=== PATIENT | male | born 1960 | race Caucasian/White ===

== ENCOUNTER → 2021-01-27 | Outpatient (CLI) | payer OTHER | LOC: EXRD 15:03 | DX: B19.20 Unspecified viral hepatitis C without hepatic coma (principal); M79.642 Pain in left hand; M79.641 Pain in right hand | CPT/HCPCS: 73130 ==

== ENCOUNTER → 2021-08-26 | Outpatient (CLI) | payer OTHER ==
[~2021-08-26] MED LIST: FLUOXETINE HCL20 M1 PO; LISINOPRIL10 MG PO; PRILOSEC PO
[2021-08-26 13:25] LABS: BUN/CREATININE RATIO 14 (0-10)
== END ==
LOC: OPSV2 11:00
PROVIDERS: Anesthesiology
DX: Z01.818 Encounter for other preprocedural examination (principal); R73.09 Other abnormal glucose; R94.31 Abnormal electrocardiogram [ECG] [EKG]; R00.0 Tachycardia, unspecified; I45.10 Unspecified right bundle-branch block; I51.7 Cardiomegaly
CPT/HCPCS: 36415; 80048; 93005

== ENCOUNTER → 2021-09-21 | Outpatient (CLI) | payer OTHER ==
[~2021-09-21] MED LIST changes: +ARTHRITIS PAIN50 GM TOP; +CETIRIZINE HCL10 MG PO; +HYDROCODON-ACE1 EAC4 PO
[2021-09-21 10:20] LABS: BUN/CREATININE RATIO 16 (0-10)
== END ==
LOC: OPSV2 08:33
PROVIDERS: Orthopaedic Surgery
DX: Z01.818 Encounter for other preprocedural examination (principal); G56.02 Carpal tunnel syndrome, left upper limb
CPT/HCPCS: 36415; 71046; 80048

== ENCOUNTER → 2021-09-24 | Day surgery (SDC) | payer OTHER | END | disposition home or self-care (01) | LOC: OR 09-03 07:30 | DX: G56.03 Carpal tunnel syndrome, bilateral upper limbs (principal); Z20.822 Contact with and (suspected) exposure to COVID-19; Z90.2 Acquired absence of lung [part of]; Z88.6 Allergy status to analgesic agent; Z72.89 Other problems related to lifestyle; Z87.891 Personal history of nicotine dependence | CPT/HCPCS: J0690; J1100; J2001; J2250; J2405; J2704; J3010; J7120 ==